=== PATIENT | female | born 1970 | race African-American/Black ===

== ENCOUNTER 2018-01-12 05:24 | Day surgery (SDC) | payer OTHER ==
[~2018-01-12] VITALS: Ht 160 cm; Wt 107.5 kg
[2018-01-12] VITALS (8 sets, daily range): BP systolic 126–143; BP diastolic 72–86
--- NOTE | ~2018-01-12 | O ---
[facility] [place] [address] OPERATIVE REPORT Name: VILMA HERNANDES Room #: DEP [facility] M.R.#: [id number] Admission: 01/12/18 Attend Phys: Mark Oden MD Discharge: 01/13/18 Date of : 66 Report #: [id number] THIS REPORT FOR: //name// CC: Romel Glasgow DATE OF SERVICE: 01/12/[address] Mark Oden and Dr. Romel Arrieta. PREOPERATIVE DIAGNOSES: Cholelithiasis, cholecystitis, biliary colic. POSTOPERATIVE DIAGNOSES: Cholelithiasis, cholecystitis, biliary colic. PROCEDURE: Laparoscopic cholecystectomy. SURGEON: Mark Oden MD. REGISTERED PHLEBOTOMIST PART TIME: Paige Tellez RN. ANESTHESIA: General. DESCRIPTION OF PROCEDURE: The patient was brought to the operating room and placed on operative table in the supine position. Sequential compression devices were in place for DVT prophylaxis. She underwent a general endotracheal anesthesia and the abdomen was then prepped and draped in a sterile fashion. Skin and subcutaneous tissue around the umbilicus was infiltrated with 0.5% Marcaine. Infraumbilical transverse skin incision was then performed using #11 scalpel blade. Hemostasis obtained using the electrocautery. Dissection was carried down through subcutaneous tissue and the fascia, which was then grasped between 2 Andreina clamps and incised with curved Bey scissors. Peritoneum was entered and a pursestring suture of 0 Vicryl was then placed in the fascia. A 12 mm disposable Naseem port was then inserted through the opening and held into place with the pursestring suture. Pneumoperitoneum was obtained to a level of 10-15 mmHg. Laparoscope was then inserted through this port and an exploration was performed, which revealed a thickened dilated gallbladder. There were no other intra-abdominal abnormalities. Two lateral 5 mm Surgiport as well as an upper midline 11 mm Surgiport were all inserted under direct visualization after infiltration with 0.5% Marcaine. The gallbladder was then grasped and retracted superiorly and the cystic duct and artery were carefully dissected free. There was a lot of scarring around the cystic duct and cystic artery and they were carefully dissected free down to the cystic common bile duct junction. Cystic artery was then doubly clipped on each side and divided with the scissors. The cystic duct was then triply clipped on the common bile duct side and doubly clipped on the gallbladder side and divided by the scissors. There was a [facility] [address] [place] [address] OPERATIVE REPORT Name: VILMA HERNANDES Room #: DEP [facility].#: [id number] Admission: 01/12/18 Attend Phys: Mark Oden MD Discharge: 01/13/18 Date of : 66 Report #: [id number] posterior arterial branch, which was clipped with a single clip. The gallbladder was then dissected free from the bed using the hook electrocautery. Prior to completing the dissection, the gallbladder was retracted superiorly and the bed inspected for hemostasis, which was found to be intact. The gallbladder was then transected and brought out through the periumbilical port and sent as specimen to pathology. The port was then returned to the abdomen and hemostasis was checked and found to be intact. The ports were then removed under direct visualization, hemostasis intact at each port site. Pneumoperitoneum was released and the periumbilical port was then also removed under direct visualization and hemostasis intact at that port site as well. Periumbilical fascia was then closed using the 0 Vicryl suture. The skin was then closed using interrupted vertical mattress 5-0 nylon sutures and the wound was dressed with Band-Aids. The patient was then awakened from the general endotracheal anesthesia, extubated, and taken to recovery room in good condition. Estimated blood loss was less than 5 mL and the patient tolerated procedure well. All sponge, lap and instrument counts correct x 2. <ELECTRONICALLY SIGNED> By: Mark Oden MD 02/07/18 1333 1524 1543 Mark Oden MD /nt
--- NOTE | ~2018-01-12 | EKG ---
[address] [address] ELECTROCARDIOGRAM REPORT Name: VILMA HERNANDES Room #: DEP [facility]#: [id number] Admission: 01/12/18 Attend Phys: Mark Oden MD Discharge: 01/13/18 Date of : 66 Report #: [id number] THIS REPORT FOR: //name// [facility] Test Date: 2018-01-12 Test Time: 13:01:13 Pat Name: VILMA HERNANDES Department: Room: 150 15 Gender: F Staff Rn: KIMMIE : 1970 Requested By: Mark Oden Order Number: [id number] MD: Wallace Carranza Measurements Intervals [place] Rate: 86 P: 64 AR: 164 QRS: 11 QRSD: 95 T: 9 QT: 390 QTc: 467 Interpretive Statements Sinus rhythm Compared to ECG 03/17/2010 14:17:24 No significant changes Electronically Signed On 01-13-2018 13:21:01 RADIO PRESENTER by Wallace Carranza [email or web address] <ELECTRONICALLY SIGNED> By: Wallace Carranza MD 01/13/18 1321 1301 130 Wallace Carranza MD /LILLY
--- NOTE | ~2018-01-12 | S ---
[facility] [place] [address] SURGICAL PATH RPT PROCEDURE Name: LYDIA HERNANDES Room #: DEP [facility] M.R.#: [id number] Admission: 01/12/18 Date of : 66 Discharge: 01/13/18 Report #: [id number] Path Case #: [id number] PATHOLOGY REPORT COLLECTION DATE: 01/12/2018 RECEIVED DATE: 01/12/2018 SUBMITTING PHYS: Dr. Mark Oden OTHER PHYS: Dr. Romel Arrieta SPECIMEN(S) RECEIVED: A.Gallbladder * * * * * * * * * * * * FINAL DIAGNOSIS: "Gallbladder", cholecystectomy: - Mild chronic cholecystitis. - Cholelithiasis. (CLW:koffi; 01/15/2018) PATHOLOGIST: Nataly Castellanos M.D. REPORT ELECTRONICALLY SIGNED BY: Nataly Castellanos M.D. DATE/TIME: 01/15/2018 15:14 * * * * * * * * * * * * GROSS PATHOLOGY: Received in formalin labeled "Lydia Hernandes gallbladder," is a 7.9 x 3.1 x 2.5 cm, intact gallbladder with blue, highly vascular serosal surfaces. Opening the gallbladder reveals dark green, velvety mucosa, rippled with yellow highlights, and an average wall thickness of 0.1 cm. Calculi are present, measuring 1.4 cm in maximal dimension, possessing a dark kennedy granular appearance, and feeling friable to the touch. No masses are noted grossly. [employer] sections from the body and fundus are submitted along with the proximal margin in cassette A1. (TSD; 01/12/2018) CLINICAL HISTORY: Gallstones INITIAL CPT CODE(S): A; 58378 Professional services performed by [facility] at [facility] [address] , [place] [address] [facility] [address] [place] [address] SURGICAL PATH RPT PROCEDURE Name: LYDIA HERNANDES Room #: DEP [facility]..#: [id number] Admission: 01/12/18 Date of : 66 Discharge: 01/13/18 Report #: [id number] Path Case #: [id number] Technical services performed by [facility] at [address] [place] [address], [facility] [address] [address]. [facility] [address] [place] [address] PHONE: [phone] DIRECTOR: Juaquin Grissom M.D. * * * END OF REPORT * * *
[~2018-01-12 05:24] MED LIST: ACCUNEB SO1.25 MG/1 INH; ALPRAZOLAM 0.50.5 MG PO; AMITIZA 24 MCG24 MC1 PO; AXID300 MG PO; CARAFATE 1 GM TA1 G1 PO; CENTRUM SILVER1 EAC4 PO; DICLOFENAC SODI75 MG PO; DOXYCYCLINE HYC50 MG PO; FLEXERIL PO; FUROSEMIDE 40 M40 MG PO; HYDROXYCHLOROQ200 M1 PO; KAPIDEX60 MG PO; KEFLEX500 MG PO; LIDODERM 5%1 PATCH TOP; MAXIDE; METFORMIN HCL500 MG PO; PHENTERMINE H37.5 MG PO; PREDNISONE 10 M10 M1 PO; PREDNISONE 20 M20 M1 PO; PROTONIX40 M1 PO; REGLAN 10 MG TA10 MG PO; REMICADE IM; TOPAMAX25 M1 PO; TRIAMCINOLONE 080 G3; UREA CREAM 40%1 TUBE; VICODIN 5-5001 EACH PO
[2018-01-12 12:51] LABS: CALCIUM 9.8 mg/dL (8.5-10.1); POTASSIUM 3.5 mmol/L (3.5-5.1)
[2018-01-12] MEDS ORDERED: NORCO 5-325 TA1 EACH PO (14:06)
[2018-01-13 00:05] VITALS: BP 110/61
[2018-01-13 03:31] VITALS: BP 137/74
[2018-01-13 07:28] VITALS: BP 120/78
[2018-01-13 10:31] VITALS: BP 120/78
[2018-01-13 11:33] VITALS: BP 120/78
== END 2018-01-13 11:34 | disposition home or self-care (01) ==
LOC: OR 05:24 → TBA 05:24 → OR 12:09 → 4S 17:16 → OR 01-13 11:34
PROVIDERS: Surgery
DX: K80.10 Calculus of gallbladder with chronic cholecystitis without obstruction (principal); E11.9 Type 2 diabetes mellitus without complications; G43.909 Migraine, unspecified, not intractable, without status migrainosus; J45.909 Unspecified asthma, uncomplicated; K21.9 Gastro-esophageal reflux disease without esophagitis; M06.9 Rheumatoid arthritis, unspecified; M79.7 Fibromyalgia; M19.90 Unspecified osteoarthritis, unspecified site; Z90.710 Acquired absence of both cervix and uterus; Z98.890 Other specified postprocedural states; Z87.891 Personal history of nicotine dependence; Z79.899 Other long term (current) drug therapy; Z88.8 Allergy status to other drugs, medicaments and biological substances
CPT/HCPCS: 10102; 50010; 50101; 50411; 50555; 50558; 51474; 51489; 52266; 53314; 56462; 56524; 56528; 62110; 62900; 70005